=== PATIENT | female | born 1970 | race Caucasian/White ===

== ENCOUNTER → 2019-06-20 | Day surgery (SDC) | payer OTHER ==
[2019-06-16 11:35] VITALS: BMI 30.1
[~2019-06-20] MED LIST: DEXMEDETOMIDINE HCL 200 MCG/2 ML IVPB ONE; LACTATED RINGERS SOLUTION 1,000 ML IV SCH; MIDAZOLAM HCL 2 MG/2 ML SINGLE DOSE VIAL ONE; ONDANSETRON 4 MG/2 ML VIAL IVPUSH PRN; ONDANSETRON 4 MG/2 ML VIAL ONE; PROMETHAZINE HCL 25 MG/1 ML VIAL IVPUSH PRN; PROPOFOL 20 ML ONE; ROPIVACAINE HCL 0.5% 30ML VIAL ONE; SCOPOLAMINE HYDROBROMIDE 1 PATCH PATCH.TD72 ONE; SODIUM CHLORIDE 0.9% P/F 10 ML VIAL IJ ONE; ceFAZolin SODIUM 1 GM VIAL ONE; oxyCODONE HCL 5 MG TABLET ONE; oxyCODONE HCL 5 MG TABLET PO ONE; oxyCODONE HCL 5 MG TABLET PO PRN
[2019-06-20 10:47] VITALS: TEMP 97.4
--- NOTE | 2019-06-20 11:01 | OP ---
DATE OF OPERATION: 06/20/2019 PREOPERATIVE DIAGNOSIS: Impingement with rotator cuff tear to the left shoulder. POSTOPERATIVE DIAGNOSES: 1. Impingement from the acromion to the left shoulder. 2. Impingement from the lateral clavicle, including the articular surface. 3. Tearing of the rotator cuff. 4. Glenoid labral tear. 5. Extensive joint debris. 6. Extensive bursal tissue. 7. Extensive hypertrophic synovium. 8. Adhesive capsulitis to the left shoulder. PROCEDURE PERFORMED: 1. Partial acromioplasty with decompression of the acromion. 2. Lateral clavicular resection, including the articular surface a Rajani procedure. 3. Debridement of partial thickness rotator cuff tear. 4. Partial glenoid labral resection. 5. Extensive bursectomy. 6. Extensive joint debridement with synovectomy. 7. Gentle manipulation of the left shoulder under anesthesia. SURGEON: Bertrand Acevedo MD TECHNICAL ACCOUNT REPRESENTATIVE: HUNG Anaya ANESTHESIA: Cristopher Morton MD TYPE OF ANESTHESIA: Interscalene block, regional block was performed. PROCEDURE: The procedure consisted of the patient being brought into the operating room and gently transferred from the stretcher to the OR table with all bony prominences well-padded. The patient was placed in the [id number] lateral position. Great care was taken to protect the neurovascular structures. A pillow was placed below the legs and a pillow between the legs to protect the neurovascular structures of the legs. A pneumatic-conforming patient support was used to conform to the patient to protect the patient's bony prominences. An axillary roll had been placed to protect the lower shoulder. The neck was kept in good alignment by the anesthesiologist. The face was protected throughout the procedure by the anesthesiologist. Following sterile preparation and draping, a gentle manipulation had been conducted with a rigid sidebar. The left shoulder on initial examination was noted to have 90 degrees abduction, flexion 90 degrees, extension 10 degrees, internal rotation 60 degrees, external rotation 10 degrees. Following the gentle manipulation of the left shoulder under anesthesia, abduction was 160 degrees, flexion 160 degrees, extension 30 degrees , internal rotation 90 degrees, external rotation 20 degrees. Gentle traction of approximately 8 pounds was applied across the shoulder joint using the traction device. Anterior, posterior, lateral portals had been used for introduction of the arthroscope and the arthroscopic instruments. Prior to proceeding with the procedure, an appropriate time out had been conducted, which was inclusive of the surgeon, type of surgery, anesthesiologist and fist assist. The patient had been given intravenous antibiotics and copious irrigation throughout the procedure to minimize the risk of infection. A complete risk, benefit and alternative discussion had been conducted, which was inclusive of, but not limited to infection, bleeding, , paralysis, increased pain, need for repeat surgery. Patient asked questions, understood the procedure and desired to proceed with surgical treatment. Examination of the glenohumeral joint demonstrated extensive hypertrophic synovium and joint debris and extensive joint debridement and resection of hypertrophic synovium with synovectomy was performed. There were adhesions of the glenohumeral joint, which were lysed and resected. Anterior and posterior recesses were without loose body or plica. The middle glenohumeral ligament was found to be intact. The biceps tendon was found to be intact. The glenoid labrum was found to have a tear and a partial glenoid labral resection was performed. The rotator cuff on the articular side was found to have a tear as well, which was probed and found to be partial-thickness and this was debrided using the shaver and the radiofrequency wand. The shoulder joint was then copiously irrigated with sterile saline irrigant and our attention was turned to the subacromial space. There was noted to be inflamed bursal tissue and this was found to be extensive and extensive partial bursectomy was performed. There was noted to be impingement from the edge of the acromion, which had a sharpness to it and this was debrided and the high-speed dariel and gabriela were used to resect a wedge of bone thick anteriorly , thin posteriorly. The lateral clavicle, including the articular portion, was also creating impingement. This was debrided and the high-speed dariel and shaver was used to resect the lateral clavicle, including the articular portion creating impingement. A Rajani procedure was performed. The rotator cuff on the bursal side was evaluated and found to be intact. The shoulder joint was then copiously irrigated with sterile saline irrigant. The wounds were closed with 4-0 undyed Vicryl, followed by Steri-Strips, Xeroform, 4 x 4's, Combine, Elastoplast and shoulder immobilizer. The patient was then gently awoken from anesthesia without incident and transferred from the operating room to the recovery room in satisfactory condition. There were no intraoperative complications. Edmar Gan was critical for assisting during surgery, holding the arthroscope while I used the arthroscopic shaver and radio frequency wand. He provided critical support and safety in surgical treatment. BERTRAND ACEVEDO M.D. [id number] MTDD
[2019-06-20 11:30] VITALS: BP 128/80; PULSE 67
== END | disposition home or self-care (01) ==
LOC: FASU 05:53
PROVIDERS: ATTEND Orthopaedic Surgery
PROC: 0RNK4ZZ Release Left Shoulder Joint, Percutaneous Endoscopic Approach (ICD-10-PCS; 2019-06-20)
PROC: 0RBK4ZZ Excision of Left Shoulder Joint, Percutaneous Endoscopic Approach (ICD-10-PCS; 2019-06-20)
PROC: 0PBB4ZZ Excision of Left Clavicle, Percutaneous Endoscopic Approach (ICD-10-PCS; 2019-06-20)
PROC: 0LQ24ZZ Repair Left Shoulder Tendon, Percutaneous Endoscopic Approach (ICD-10-PCS; principal; 2019-06-20 08:00)
DX: M75.102 Unspecified rotator cuff tear or rupture of left shoulder, not specified as traumatic (principal); M75.42 Impingement syndrome of left shoulder; M25.112 Fistula, left shoulder; M24.012 Loose body in left shoulder; M67.212 Synovial hypertrophy, not elsewhere classified, left shoulder; M75.02 Adhesive capsulitis of left shoulder
CPT/HCPCS: 81025; 82962; 94760

== ENCOUNTER 2024-05-22 05:16 | Day surgery (SDC) | payer OTHER ==
[2024-05-14 11:57] VITALS: BMI 34.3
[2024-05-22 08:19] VITALS: TEMP 98
[2024-05-22 09:01] VITALS: BP 138/77; PULSE 65; RESP 13
== END 2024-05-22 09:25 | disposition home or self-care (01) ==
LOC: JASU-ENDO 05:16
PROVIDERS: ATTEND Internal Medicine Gastroenterology
PROC: 0DB78ZX Excision of Stomach, Pylorus, Via Natural or Artificial Opening Endoscopic, Diagnostic (ICD-10-PCS; 2024-05-22)
PROC: 0DB68ZX Excision of Stomach, Via Natural or Artificial Opening Endoscopic, Diagnostic (ICD-10-PCS; principal; 2024-05-22 08:00)
DX: K29.50 Unspecified chronic gastritis without bleeding (principal)
CPT/HCPCS: 81025; 88305-TC; 88342-TC